=== PATIENT | male | born 1945 | race Caucasian/White ===

== ENCOUNTER 2022-06-28 15:52 | Day surgery (SDC) | payer MEDICARE, SELFPAY ==
--- NOTE | 2022-06-28 | DI.RAD.S_ITS ---
PROCEDURE: XR KUB INDICATIONS: Right ureteral calculus TECHNIQUE: One view of the abdomen acquired. COMPARISON: [facility], RG, CT ABDOMEN/PELVIS WITH CONTRAST, 06/27/2022, 20:01. FINDINGS: Surgical changes and devices: None. Bowel: Bowel gas pattern is normal. Soft tissues: 3 mm high density focus projects over the right L5 transverse process. Visualized solid organ contours appear normal in size. Bones: No suspicious bony lesions. IMPRESSION: Possible right mid ureteral calculus. Dictated by: Elizabeth Burdick M.D. on 06/28/2022 at 16:16 Approved by: Elizabeth Burdick M.D. on 06/28/2022 at 16:17
--- NOTE | 2022-06-28 | DI.RAD.S_ITS ---
PROCEDURE: XR ABDOMEN 1V INDICATIONS: right kidney stone TECHNIQUE: Single fluoroscopic intra-operative image acquired by the Urology service. COMPARISON: [facility], CR, XR KUB, 06/28/2022, 16:01. FINDINGS: Single fluoroscopic image of the abdomen demonstrates guidewire projecting over the expected course of the ureter with coiling in the expected location of the renal pelvis. IMPRESSION: Limited single fluoroscopic image demonstrating presence of a guidewire projecting over the expected course of the ureter and renal pelvis. Please see separate procedure note for further details. Dictated by: Deuce Mendoza M.D. on 06/29/2022 at 9:48 Approved by: Deuce Mendoza M.D. on 06/29/2022 at 9:51
[2022-06-28] MEDS: LACTATED RINGERS 1,000 ML 100 ML IV (16:07)
[2022-06-28 16:19] VITALS: BP 187/68; PULSE 60; RESP 16; TEMP 36.8; O2SAT 99; BMI 25.1
[2022-06-28 16:27] LABS: COVID19 -Nasal RAPID Negative (Negative)
[2022-06-28 16:35] VITALS: BMI 25.1
--- NOTE | 2022-06-28 17:11 | PM.PREOP ---
Pre-operative Note COVID-19 Criteria for continued procedure: Expected advancement of disease process, Possibility delay results in more complex future surgery or treatment, Increased loss of function, Continuing or worsening of significant or severe pain, Deterioration of the patient's condition or overall health, Delay expected to result in less-positive ultimate med/surg outcome and Non-surgical alternatives not available or appropriate per current SOC Interval Note History & Physical reviewed/Exam performed by Physician: Yes Changes to H&P: No
--- NOTE | 2022-06-28 17:12 | SUR.OPER ---
Lithotomy on padded OR bed, head on pillow, arms secured on padded arm boards at <90 degrees abduction. Legs secured in padded yellow fins stirrups.
--- NOTE | 2022-06-28 17:23 | P.HP_ITS ---
History of Present Illness History of Present Illness Date Patient Seen: 06/28/22 Time Patient Seen: 17:15 Chief complaint: SDC Narrative: Dylan is a 76-year-old male presenting urgently today for management of intractable right renal colic secondary to newly diagnosed 7 mm obstructing proximal right ureteral calculus. He has remote history of urolithiasis status post ureteral stone treatment by me many years ago. He was experiencing his usual health until approximately 24 hours ago when he had acute onset of severe right-sided flank and abdominal pain. Presented to the [facility] Emergency Department for evaluation. CT KUB 06/27/2022, demo nstrated a nonobstructing 5 mm right lower pole renal calculus and a 7 mm obstructing proximal right ureteral calculus with moderate to moderately severe proximal right hydronephrosis. KUB 06/28/2022 has a very prominent stool and bowel gas pattern. No definite radiopaque density is seen in the expected distribution of urinary tract bilaterally, and more specifically, in the referenced anatomical locations described above seen on CT KUB. Patient History Medical History (Updated 06/28/22 @ 17:27 by Loretta Tony MD) Bladder stones Erectile dysfunction History of bladder stone History of nephrolithiasis HTN (hypertension) Hyperlipidemia Inguinal hernia Prostate cancer Prostate cancer Right renal stone Surgical History H/O circumcision H/O cystoscopy H/O hernia repair History of liver biopsy History of prostate biopsy S/P TURP Vasectomy status Family & Social History Social History: household members spouse Tobacco & Substance use: Smoking Status Former smoker alcohol intake former alcohol intake frequency holiday/special occasion Substance Use Type does not use Meds Home Medications and Allergies Home Medications Medication Instructions Recorded Confirmed Type amlodipine 5 mg tablet 5 mg PO DAILY 07/08/20 06/28/22 History atorvastatin 20 mg tablet 20 mg PO DAILY 07/08/20 06/28/22 History cholecalciferol (vitamin D3) 50 50 mcg PO DAILY 07/08/20 06/28/22 History mcg (2,000 unit) capsule losartan 25 mg tablet 25 mg PO DAILY 07/08/20 06/28/22 History multivitamin 1 cap PO DAILY 07/08/20 06/28/22 History sildenafil (pulm.hypertension) 20 20 mg PO .prn PRN sexual activity 09/01/21 06/28/22 Rx mg tablet #60 tabs Allergies Allergy/AdvReac Type Severity Reaction Status Date / Time atenolol Allergy Mild Verified 04/11/22 13:36 WARREN Inhibitors Allergy Verified 04/11/22 13:36 Sulfa (Sulfonamide Allergy Verified 04/11/22 13:36 Antibiotics) Review of Systems Review of Systems ROS: Yes All systems reviewed with the patient and are negative except as otherwise documented Exam Vital Signs (past 8 hours): - 06/28/22 16:19 Temperature 98.2 F Pulse Rate 60 Respiratory Rate 16 Blood Pressure 187/68 H Pulse Oximetry 99 Oxygen Delivery Method Room Air Oxygen Delivery Method Room Air Narrative Exam Narrative: He is a well-developed, well-nourished elderly male appearing younger than stated age. Head/neck-sclera clear and pupils are round and equal bilaterally. There is no visible evidence of adenopathy or JVD bilaterally. Chest-equal and unlabored expansion bilaterally. Heart-normal sinus rhythm. Objective Labs Labs: Laboratory Results - last 24 hr 06/28/22 15:55 SARS-CoV-2 (PCR) Negative Assessment & Plan Assessment and plan (1) Right ureteral calculus: Status: Acute (2) Right renal stone: Status: Acute Plan 1. Proceed to CYSTOSCOPY/PLACEMENT RIGHT URETERAL STENT. 2. Likely will require ureteroscopic stone treatment should follow-up plain film KUB confirm radiolucent nature of stones. Reviewed findings, discussed impression, discussed options, and rationale for internal urinary diversion with right ureteral stent. Explain the common side effects, possible complications, perioperative limitations/restrictions, and r easonable expectations of outcomes and recovery following cystoscopy and right ureteral stent placement. He also understands that this will be a temporizing measure for relief of intractable right renal colic and likely future indication and benefit from laser ureteroscopic lithotripsy. Time Spent With Patient Critical Care time: I spent a total of [] minutes of critical care time on this patient's care today; this time is exclusive of procedural time.
[2022-06-28] MEDS: CEFAZOLIN 2 GM/100 ML PREMIX 100 ML IV (17:25)
--- NOTE | 2022-06-28 18:08 | P.OP_ITS ---
Operative Date/Time/Diagnoses Date of procedure: 06/28/22 Time of procedure: 18:08 Pre-op diagnosis: 1. Obstructing 7 mm right proximal ureteral calculus. 2. Intractable right renal colic. 3. Right renal calculus. Post-op diagnosis: same Procedure & Clinicians Procedure: 1. CYSTOSCOPY/RIGHT URETERAL STONE MANIPULATION WITHOUT REMOVAL. 2. CYSTOSCOPY/PLACEMENT RIGHT URETERAL STENT (6 Citizen [place] by 22-32 cm multi-length. 3. CYSTOSCOPY/DILATION BLADDER NECK CONTRACTURE. Same procedure as scheduled: No (Bladder neck contracture encountered.) Indications: 1. Obstructing 7 mm right proximal ureteral calculus. 2. Intractable right renal colic. Surgeon: Loretta Tony Click Yes if Unassisted: Yes Anesthesia Type: General Operative Notes Findings: 1. Urethra -normal caliber without annular stricture or lesion. 2. External sphincter-coapted with normal overlying urothelium. 3. Prostate-status post TUR nonobstructing. 4. [id number] Citizen [place] bladder neck contracture. Bladder urothelium is normal throughout. There is a wide-mouth posterior bladder wall diverticulum. Ureteral orifices were normal position but the right ureteral orifice was somewhat directed posteriorly due to the distorted anatomy related to the posterior bladder wall diverticulum. 5. Upon retrograde advancement of the right ureteral stent the stone was engaged and ?sounded? the vicinity of the proximal ureter. It appeared radiolucent under fluoroscopic status imaging and fluoroscopy. Closure Type: not applicable Specimen(s): none sent Applied: other (Six [place] by 22-32 cm multi-length stent.) Estimated Blood Loss (mL): 0 Procedure in detail: The patient was positioned supine was administered general anesthesia. He was then repositioned in semi lithotomy and lower abdomen, genitalia, and groin were then prepped and draped in sterile fashion. A 22 [place] panendoscope was then passed the lower urinary tract with the findings as described above. The blunt angled tip of the panendoscope was then insinuated into the bladder neck contracture and advanced proximally with some required force with subsequent dilation the scope shaft was then used to fulcrum the bladder neck contracture a bit more for dilation. A 0.35 hybrid guidewire was then advanced through the working channel the scope was advanced proximally. Due to the posterior angulation of the right ureteral orifice a 5 [place] open-ended catheter was advanced over the hybrid guidewire to assist in directing the tip into the obliquely visualized right ureteral orifice. The wire was then advanced proximally under direct and fluoroscopic guidance. Next, a 6 [place] by 22-32 cm multi-length stent was requested and advanced over the hybrid guidewire. This too was advanced under direct and fluoroscopic guidance and positioned appropriately in the right collecting system. NO RETRIEVAL LINE WAS LEFT ATTACHED. The bladder contents were then drained completely and all instrumentation was removed. The patient was then repositioned in supine, was awakened, was transferred to [facility] and transferred to recovery awake stable condition. Complications: none Post-operative Condition: stable Disposition: PACU Plan for aftercare: Discharge home.
[2022-06-28 18:13] VITALS: BP 143/72; PULSE 71; RESP 13; TEMP 36.3; O2SAT 97
[2022-06-28 18:18] VITALS: BP 150/73; PULSE 69; RESP 18; O2SAT 98
[2022-06-28 18:23] VITALS: BP 164/92; PULSE 75; RESP 16; TEMP 36.7; O2SAT 98
[2022-06-28 18:33] LABS: Appearance Urine UA CLEAR; Bilirubin Urine UA NEGATIVE (NEGATIVE); Color Urine UA ORANGE; Glucose Urine UA NEGATIVE (Negative); Ketones Urine UA NEGATIVE (NEGATIVE); Leukocyte Esterase Urine UA TRACE (NEGATIVE); Nitrite Urine UA NEGATIVE (Negative); Occult Blood Urine UA 3+ (Negative); Protein Urine UA NEGATIVE (Negative); Specific Gravity Urine UA 1.015 (1.000-1.035); Urobilinogen Urine UA 0.2 E.U./dL (0.2); pH Urine UA 5.5 (4.5-8.0)
[2022-06-28 18:38] VITALS: BP 162/85; PULSE 73; RESP 16; O2SAT 99
[2022-06-28 18:39] LABS: Bacteria Urine Occasional (0-1); Culture Indicated Urine Specimen Cultured; RBC Urine 5-10/HPF (0-5/HPF); WBC Urine 5-10/HPF (0-5/HPF)
[2022-06-28 18:45] VITALS: BP 168/90; PULSE 73; RESP 18; O2SAT 99
--- NOTE | 2022-06-28 19:07 | SUR.PHASEII ---
1900: Pt A&Ox4, denies any distress, VSS, voided pink tinged clear urine with no clots, and is ready to discharge home. Discharge instructions reviewed with patient and spouse with time allowed for questions. Assisted pt into car, and left with spouse in stable condition.
== END 2022-06-28 18:50 | disposition home or self-care (01) ==
PROVIDERS: PCP Family Medicine; Referring Provider Specialist; Visit Provider Specialist
PROC: (CPT 52344; principal; 2022-06-28 17:00)
DX: N20.1 Calculus of ureter (principal); I10 Essential (primary) hypertension; Z20.822 Contact with and (suspected) exposure to COVID-19
CPT/HCPCS: 52344; 52330; 52332; 74018; 76000; 81001; 82962; 87086; 87635; J0690; J3010

== ENCOUNTER → 2022-07-09 12:10 | Outpatient (CLI) | payer MEDICARE, SELFPAY ==
--- NOTE | 2022-07-09 12:15 | DI.RAD.S_ITS ---
PROCEDURE: XR KUB INDICATIONS: Kidney stone TECHNIQUE: One view of the abdomen acquired. COMPARISON: [facility], CR, XR KUB, 06/28/2022, 16:01. FINDINGS: Surgical changes and devices: Double-J right ureteral stent in place. Bowel: Bowel gas pattern is normal. Soft tissues: There might be renal stone at the right inferior pole measuring about 4 millimeters. Suspected phleboliths are present in the pelvis. Evaluation is limited by overlapping bowel gas and stool. Bones: Spondylotic changes and bilateral hip degenerative changes. IMPRESSION: Appropriate positioning of the right double-J ureteral stent. Possible small stone in the right lower pole. Pelvic calcifications may be phleboliths. Evaluation is limited by overlapping stool and bowel gas. Dictated by: Jeramie Salinas M.D. on 07/09/2022 at 14:06 Approved by: Jeramie Salinas M.D. on 07/09/2022 at 14:08
== END ==
PROVIDERS: PCP Family Medicine; Referring Provider Specialist; Visit Provider Specialist
DX: N20.0 Calculus of kidney (principal); N20.1 Calculus of ureter
CPT/HCPCS: 74018

== ENCOUNTER → 2022-07-11 15:23 | Outpatient (CLI) | payer MEDICARE, SELFPAY ==
[2022-07-11 16:31] LABS: Appearance Urine UA CLOUDY; Bilirubin Urine UA 1+ (NEGATIVE); Color Urine UA BROWN; Glucose Urine UA TRACE g/dL (Negative); Ketones Urine UA NEGATIVE (NEGATIVE); Leukocyte Esterase Urine UA 1+ (NEGATIVE); Nitrite Urine UA POSITIVE (Negative); Occult Blood Urine UA 3+ (Negative); Protein Urine UA 3+ (Negative); Specific Gravity Urine UA 1.025 (1.000-1.035); pH Urine UA 6.5 (4.5-8.0)
[2022-07-11 16:53] LABS: Bacteria Urine Occasional (0-1); Culture Indicated Urine Specimen Cultured; RBC Urine 10-30/HPF (0-5/HPF); Squamous Epithelial Cell Urine 1-5 /HPF (0-5/HPF); WBC Urine 5-10/HPF (0-5/HPF)
[2022-07-11 16:55] LABS: Ictotest Urine Positive (Negative)
== END ==
PROVIDERS: PCP Family Medicine; Visit Provider Specialist
DX: N20.0 Calculus of kidney (principal); N20.1 Calculus of ureter; C61 Malignant neoplasm of prostate; Z96.0 Presence of urogenital implants
CPT/HCPCS: 81001; 87086; 99215

== ENCOUNTER → 2022-07-31 11:04 | Outpatient (CLI) | payer MEDICARE, SELFPAY ==
[2022-07-31 11:49] LABS: COVID19 -Nasal RAPID Negative (Negative)
== END ==
PROVIDERS: PCP Family Medicine; Visit Provider Specialist
DX: Z20.822 Contact with and (suspected) exposure to COVID-19 (principal)
CPT/HCPCS: 87635

== ENCOUNTER 2022-08-03 09:53 | Day surgery (SDC) | payer MEDICARE, SELFPAY ==
[2022-07-31 07:37] VITALS: BMI 25.1
[2022-08-03] VITALS (10 sets, daily range): BP systolic 127–167; BP diastolic 73–89; PULSE 64–76; RESP 13–18; TEMP 36.2–36.6; O2SAT 97–100; BMI 25.1
--- NOTE | 2022-08-03 | DI.RAD.S_ITS ---
PROCEDURE: XR KUB INDICATIONS: Right nephrolithiasis TECHNIQUE: One view of the abdomen acquired. COMPARISON: [facility], CR, XR KUB, 07/09/2022, 12:16. [facility], CR, XR KUB, 06/28/2022, 16:01. FINDINGS: Surgical changes and devices: Right double-J ureteral stent in place in appropriate position. Bowel: Bowel gas pattern is normal. Soft tissues: There might be a calcification of the right lower pole measuring 4 millimeters Pelvic calcifications might be phleboliths. There may also be a calcification adjacent to the right mid ureter measuring 2-3 millimeters. Evaluation is difficult in the setting of overlapping bowel gas and stool. Bones: No suspicious bony lesions. IMPRESSION: Appropriate positioning of the right double-J ureteral stent. Possible calcification in the right lower renal pole. Possible 2-3 millimeter calcification adjacent to the right mid ureter. Evaluation is difficult in the setting of overlapping bowel gas and stool. Dictated by: Jeramie Salinas M.D. on 08/03/2022 at 10:43 Approved by: Jeramie Salinas M.D. on 08/03/2022 at 10:46
[2022-08-03] MEDS: LACTATED RINGERS 1,000 ML 42 ML IV (11:03)
--- NOTE | 2022-08-03 12:10 | PM.PREOP ---
Pre-operative Note COVID-19 Criteria for continued procedure: Expected advancement of disease process, Continuing or worsening of significant or severe pain, Deterioration of the patient's condition or overall health, Delay expected to result in less-positive ultimate med/surg outcome and Non-surgical alternatives not available or appropriate per current SOC Interval Note History & Physical reviewed/Exam performed by Physician: Yes Changes to H&P: No
[2022-08-03] MEDS: CEFAZOLIN 2 GM/100 ML PREMIX 100 ML IV (12:29)
--- NOTE | 2022-08-03 13:10 | SUR.OPER ---
Lithotomy on ESWL bed, head on pillow, arms padded with gel pads at at sides, <90 degrees abduction. Bilateral legs on padded ESWL table.
--- NOTE | 2022-08-03 13:13 | PM.OP.1 ---
Operative Date/Time/Diagnoses Date of procedure: 08/03/22 Time of procedure: 12:55 Pre-op diagnosis: 1. Right renal calculus 2. Retained right ureteral stent Post-op diagnosis: same Procedure & Clinicians Procedure: 1. Right extracorporeal shockwave lithotripsy (410 shocks at 6.0 power level). Same procedure as scheduled: Yes Indications: 1. 8 mm right renal calculus (previously impacted in right ureteropelvic junction). 2. Retained right ureteral stent. Surgeon: Loretta Tony Click Yes if Unassisted: Yes Anesthesia Type: General Operative Notes Findings: Index calculus located in right lower pole as depicted and preoperative imaging. Intact well-positioned right ureteral stent as depicted on preoperative imaging. Closure Type: not applicable Specimen(s): none sent Estimated Blood Loss (mL): 0 Blood products transfused: none Complications: other (Possible third-degree heart block. Procedure aborted and patient awakened.) Post-operative Condition: stable Disposition: PACU Plan for aftercare: 1. EKG. 2. Hospitalist consultation for evaluation, possible admission, possible transfer to facility with cardiac services.
--- NOTE | 2022-08-03 14:11 | SUR.PHASEI ---
Assumed care. VS stable. Patient denied pain.
--- NOTE | 2022-08-03 14:18 | SUR.PHASEI ---
RT performing EKG.
--- NOTE | 2022-08-03 14:24 | SUR.PHASEI ---
EKG complete. Called hospitalist at [phone] but there was no answer and no voicemail.
--- NOTE | 2022-08-03 14:30 | SUR.PHASEI ---
Dr. Abreu notified EKG complete. Per MD patient to remain on the monitor until he is evaluated by MD.
--- NOTE | 2022-08-03 14:37 | P.CONS_ITS ---
History of Present Illness Consult details Date Patient Seen: 08/03/22 Chief complaint: SDC Reason for consult: Bradycardia Narrative: 76-year-old with a history of hypertension was in the OR for lithotripsy procedure by Urology. As soon as the initiation of anesthesia patient heart rate dropped to 40s, anesthesia had to give glycopyrrolate to increase the heart rate and procedure was stopped. I was called in to evaluate the patient for possibility of complete heart block, and further recommendations. When I saw the patient in the PACU area, patient asymptomatic, denies any chest pain, shortness her breath, no similar episodes in the past, tolerated surgery of his wrist and peripheral artery stenting procedures without any complications. He did confirm that he had abnormal reaction to atenolol with a significant bradycardia episodes. I reviewed the EKG did not show any acute abnormalities, discussed care process with the Urology and anesthesia at bedside. Recommended to continue to monitor the patient. Meds Home Medications and Allergies Home Medications Medication Instructions Recorded Confirmed Type atorvastatin 20 mg tablet 20 mg PO DAILY 07/08/20 08/03/22 History cholecalciferol (vitamin D3) 50 50 mcg PO DAILY 07/08/20 07/30/22 History mcg (2,000 unit) capsule multivitamin 1 cap PO DAILY 07/08/20 07/30/22 History sildenafil (pulm.hypertension) 20 20 mg PO .prn PRN sexual activity 09/01/21 08/03/22 Rx mg tablet #60 tabs amlodipine 5 mg tablet 10 mg PO DAILY 07/11/22 08/03/22 History losartan 25 mg tablet 100 mg PO DAILY 07/11/22 08/03/22 History tamsulosin 0.4 mg capsule 0.4 mg PO BEDTIME #90 caps 07/27/22 08/03/22 Rx Allergies Allergy/AdvReac Type Severity Reaction Status Date / Time WARREN Inhibitors Allergy Angioedema Verified 08/03/22 11:04 Sulfa (Sulfonamide Allergy Rash Verified 08/03/22 11:04 Antibiotics) atenolol AdvReac Bradycardia Verified 08/03/22 11:04 Review of Systems Review of Systems Narrative: All review of systems done, negative other than as mentioned above. Exam Vital Signs (past 8 hours): - 08/03/22 11:09 08/03/22 13:02 08/03/22 13:07 Temperature 97.8 F 97.9 F Pulse Rate 64 74 76 Respiratory Rate 18 18 18 Blood Pressure 155/78 H 141/74 H 127/75 Pulse Oximetry 100 98 97 Oxygen Delivery Method Room Air Room Air Room Air 08/03/22 14:11 08/03/22 14:24 Temperature 97.1 F L Pulse Rate 71 69 Respiratory Rate 13 14 Blood Pressure 159/82 H 155/83 H Pulse Oximetry 99 99 Oxygen Delivery Method Room Air Room Air Oxygen Delivery Method Room Air Narrative Exam Narrative: Alert oriented, able to make conversation, heart rate in 70s, not in distress, constitutional, HEENT, eyes, cardiovascular, respiratory, neuro, psych, skin examination done, negative Objective ECG Impression: Reviewed, no acute abnormalities PFSH Medical History Bladder stones Erectile dysfunction History of bladder stone History of nephrolithiasis HTN (hypertension) Hyperlipidemia Inguinal hernia Prostate cancer Prostate cancer Right renal stone Surgical History H/O circumcision H/O cystoscopy (2014) H/O hernia repair H/O left wrist surgery (1985) H/O right knee surgery (2016) History of prostate biopsy (2015) Hx of bilateral cataract extraction (2016) Hx of cystoscopy (06/28/22) Hx of left inguinal hernia repair (2007) Hx of right inguinal hernia repair (2005) Hx of transurethral resection of prostate (2015) S/P TURP Vasectomy status Social History marital status: household members: spouse Tobacco & Substance Use Smoking Status: Former smoker alcohol intake: current Assessment & Plan Assessment and plan (1) Bradycardia: Status: Acute Assessment & Plan narrative: Transient bradycardia during anesthesia for a lithotripsy procedure -I do not believe this is a complete heart block, EKG is not concerning at this time Could be medication related during the anesthesia -recovered completely - continue to monitor the patient for another couple of hours I examined the patient around 230 and also 3:00 p.m., troponin negative, repeat EKG did not show any abnormalities. confirms history of bundle branch block but unclear about the details. She does have cardiology follow-up arranged for her . Patient need cardiac clearance by Cardiology before proceeding for procedure, discussed with the Urology and anesthesia about this. Thank you for the consultation, care plan extensively discussed with the patient, , urology, anesthesia, nursing staff at bedside. Answered all questions. Time Spent With Patient Critical Care time: I spent a total of [] minutes of critical care time on this patient's care today; this time is exclusive of procedural time.
--- NOTE | 2022-08-03 14:44 | SUR.PHASEI ---
Report given to
--- NOTE | 2022-08-03 15:48 | SUR.PHASEII ---
DR Tony called. Updated that patient cleared for discharge by Hospitalist pending Troponin level.
[2022-08-03 16:14] LABS: Troponin I 0.013 ng/mL (0.01-0.034)
--- NOTE | 2022-08-03 16:42 | SUR.PHASEI ---
1310: Received order for Stat EKG. Low HR and irregular rhythm noted by anesthesia and ESWL aborted. EKG obtained as ordered. Anesthesia reviewed. Patient in Normal sinus rhythm at this time. Hospitalist consulted. 1320: Dr. Abreu, hospitalist at bedside. Received order to obtain repeat EKG at 14:15 and instructed to notify physician when obtained. 1420: EKG obtained and Dr. Abreu at bedside. 1445: Dr Abreu at bedside to compare EKG. No changes noted. Received order for Troponin stat. If Troponin negative, patient may be discharged.
== END 2022-08-03 16:44 | disposition home or self-care (01) ==
PROVIDERS: Family Medicine; PCP Family Medicine; Referring Provider Specialist; Visit Provider Specialist
PROC: (CPT 50590; principal; 2022-08-03 11:45)
DX: N20.0 Calculus of kidney (principal); Z96.0 Presence of urogenital implants; I10 Essential (primary) hypertension; R00.1 Bradycardia, unspecified; Z53.09 Procedure and treatment not carried out because of other contraindication
CPT/HCPCS: 50590; 00910; 36415; 74018; 82962; 84484; 93005; 93010; J0690; J2250; J2704; J3010

== ENCOUNTER → 2022-08-22 14:30 | Outpatient (CLI) | payer MEDICARE, SELFPAY | PROVIDERS: PCP Family Medicine; Visit Provider Specialist | DX: C61 Malignant neoplasm of prostate (principal); N20.2 Calculus of kidney with calculus of ureter; Z96.0 Presence of urogenital implants; E11.9 Type 2 diabetes mellitus without complications; Z79.4 Long term (current) use of insulin; Z71.3 Dietary counseling and surveillance | CPT/HCPCS: 51798; 81002; 87077; 87086; 87147; 87186; 99215; G0108 ==

== ENCOUNTER → 2022-10-31 14:33 | Outpatient (CLI) | payer MEDICARE, SELFPAY ==
[2022-10-31 15:20] LABS: COVID19 -Nasal RAPID Negative (Negative)
== END ==
PROVIDERS: PCP Family Medicine; Visit Provider Specialist
DX: C61 Malignant neoplasm of prostate (principal); N20.1 Calculus of ureter; Z20.822 Contact with and (suspected) exposure to COVID-19; Z96.0 Presence of urogenital implants
CPT/HCPCS: 81002; 87086; 87635; 99215

== ENCOUNTER 2022-11-02 06:27 | Day surgery (SDC) | payer MEDICARE, SELFPAY ==
--- NOTE | 2022-11-02 | DI.RAD.S_ITS ---
PROCEDURE: XR KUB INDICATIONS: Right nephrolithiasis TECHNIQUE: One view of the abdomen acquired. COMPARISON: [facility], CR, XR KUB, 07/09/2022, 12:16. [facility], CR, XR KUB, 08/03/2022, 10:28. FINDINGS: Surgical changes and devices: A right ureteral stent is again seen in stable position. Bowel: Bowel gas pattern is normal. Soft tissues: No definite renal or ureteral calculus is seen. Phleboliths are seen in the pelvis. Visualized solid organ contours appear normal in size. Bones: No suspicious bony lesions. IMPRESSION: Stable right ureteral stent. Previously seen right renal and ureteral calculi are not definitely redemonstrated radiographically. Approved by: Nomi Disla M.D. on 11/02/2022 at 7:55
[2022-11-02 06:47] VITALS: BP 160/69; PULSE 64; RESP 16; TEMP 36.5; O2SAT 100; BMI 25.1
[2022-11-02] MEDS: LACTATED RINGERS 1,000 ML 21 ML IV (07:05)
--- NOTE | 2022-11-02 07:56 | PM.PREOP ---
Pre-operative Note COVID-19 Criteria for continued procedure: Expected advancement of disease process, Possibility delay results in more complex future surgery or treatment, Continuing or worsening of significant or severe pain, Deterioration of the patient's condition or overall health, Delay expected to result in less-positive ultimate med/surg outcome and Non-surgical alternatives not available or appropriate per current SOC Interval Note History & Physical reviewed/Exam performed by Physician: Yes Changes to H&P: No
--- NOTE | 2022-11-02 08:10 | SUR.OPER ---
Supine on shockwave lithotripsy bed, head on pillow, arms secured at sides, legs uncrossed. Converted to lithotomy for cystoscopy portion of procedure. Pt positioned per direction and supervision of Dr Tony.
[2022-11-02] MEDS: CEFAZOLIN 2 GM/100 ML PREMIX 100 ML IV (08:45)
[2022-11-02 08:59] VITALS: BP 148/62; PULSE 69; RESP 14; TEMP 36.3; O2SAT 97
[2022-11-02 09:03] VITALS: BP 134/61; PULSE 64; RESP 16; O2SAT 99
[2022-11-02 09:09] VITALS: BP 143/65; PULSE 66; RESP 11; TEMP 36.2; O2SAT 99
[2022-11-02 09:21] VITALS: BP 153/76; PULSE 59; RESP 16; TEMP 36.5; O2SAT 100
[2022-11-02 09:35] VITALS: BP 163/73; PULSE 69; RESP 16; TEMP 36.4; O2SAT 100
--- NOTE | 2022-11-02 10:34 | PM.OP.1 ---
Operative Date/Time/Diagnoses Date of procedure: 11/02/22 Time of procedure: 09:10 Pre-op diagnosis: 1. 6 x 8 mm right proximal ureteral calculus. 2. Retained right ureteral stent. Post-op diagnosis: same Procedure & Clinicians Procedure: 1. Right extracorporeal shockwave lithotripsy (maximal power level 8.0 x 2500 shocks). 2. Cystoscopy/removal right ureteral stent Same procedure as scheduled: Yes Indications: 1. Obstructing 6 x 8 mm right proximal ureteral calculus. 2. Retained right ureteral stent Surgeon: Loretta Tony Click Yes if Unassisted: Yes Anesthesia Type: General Operative Notes Findings: 1. Index calculus has migrated antegrade from the right lower pole into the proximal ureter along the retained right ureteral stent. Essentially repositioned at its original location at time of initial stent placement. 2. Urethra-normal caliber without annular stricture or lesion. 3. External sphincter-coapted with normal overlying urothelium. 4. Prostate-nonobstructing status post TUR. 5. Bladder-indwelling right ureteral stent with mild encrustations of distal coil. Retrieval lines are noted and had migrated retrograde since placement. There is mild edema and erythema surrounding the right ureteral orifice. Closure Type: not applicable Specimen(s): none sent Estimated Blood Loss (mL): 0 Blood products transfused: none Procedure in detail: The patient was positioned in supine was administered general anesthesia. The above-described calculus was then localized in the X, Y, and Z plane. Lithotripsy was then commenced at minimal power of 200 shocks. A 2 minute pause was then conducted. Lithotripsy was then resumed and power level was increased to a maximum of 8.0. A total of 2500 shocks were delivered to the stone and its fragments. The stone and its fragments were relocalized as needed throughout the treatment process. A 2500 shocks there was excellent evidence of stone comminution. The patient was then repositioned semi lithotomy and the lower abdomen, genitalia, and groin were then prepped and draped in sterile fashion. The 22 Swiss panendoscope was then passed and lower urinary tract with the findings as described above. An alligator foreign body grasper was then utilized to engage the stent and remove it without incident. The bladder was then drained completely and the panendoscope was removed. The patient was then repositioned in supine, was awakened, transferred to [facility], and transported to recovery in stable condition. Post-operative Condition: stable Disposition: PACU Plan for aftercare: Discharge home
== END 2022-11-02 09:50 | disposition home or self-care (01) ==
PROVIDERS: PCP Family Medicine; Referring Provider Specialist; Visit Provider Specialist
PROC: (CPT 50590; principal; 2022-11-02 07:45)
PROC: (CPT 50590; 2022-11-02 07:45)
DX: N20.1 Calculus of ureter (principal); Z46.6 Encounter for fitting and adjustment of urinary device
CPT/HCPCS: 50590; 74018; J0690; J2704

== ENCOUNTER → 2022-12-26 15:06 | Outpatient (CLI) | payer MEDICARE, SELFPAY ==
[2022-12-31 10:17] LABS: Ca oxalate dihydrate 50 % (.); Ca oxalate monohydr 50 % (.)
== END ==
PROVIDERS: PCP Family Medicine; Visit Provider Specialist
DX: C61 Malignant neoplasm of prostate (principal); N20.2 Calculus of kidney with calculus of ureter; Z87.442 Personal history of urinary calculi
CPT/HCPCS: 82365; 99215